=== PATIENT | female | born 1950 | race Caucasian/White ===

== ENCOUNTER 2016-08-25 09:59 | Emergency (ER) | payer OTHER ==
--- NOTE | 2016-08-25 10:12 | CPEKG ---
Heart Rate: 109 RR Interval: 550 P-R Interval: 168 QRSD Interval: 84 QT Interval: 384 QTC Interval: 518 P Elmer: 58 QRS Elmer: 202 T Wave Elmer: 32 EKG Severity - ABNORMAL ECG - EKG Impression: ATRIAL-PACED COMPLEXES EKG Impression: MULTIFORM VENTRICULAR PREMATURE COMPLEXES EKG Impression: MULT INTERPOLATED VENT PREMATURE COMPLEXES EKG Impression: RIGHT AXIS DEVIATION Electronically Signed By: Nii Burroughs 25-Aug-2016 15:10:14
--- NOTE | 2016-08-25 10:20 | EDPHY ---
HPI/HX/ROS/PE/MDM Narrative: CHIEF COMPLAINT: Chest pain. HPI: The patient is a 66-year-old female who complains of chest pain. The patient woke up this morning with normal neck pain. She was resting with a heating pad and suddenly developed left jaw pain that radiates down her left shoulder and arm. This started about 1.5 hours ago. Her blood pressure at that time was 180/100. The pain was initially an 8 or 9/10. She took Aspirin and the pain improved to a 2 or 3. She states she has a dull ache now. The patient saw Dr. Mccullough over 5 years ago for similar jaw pain. She had initial testing that was normal at that time. REVIEW OF SYSTEMS: Aside from elements discussed in the HPI, a comprehensive 10-point review of systems was reviewed and is negative. PMH: COPD. SOCIAL HISTORY: Heavy cigarette smoker. Denies drug abuse. PHYSICAL EXAM: General: Patient is alert, in no acute distress. ENT: Eyes are normal to inspection. ENT inspection normal. Neck: Normal inspection. Full range of motion. Respiratory: No respiratory distress. Breath sounds normal bilaterally. Cardiovascular: Regular rate and rhythm. Strong peripheral pulses. Abdomen: The abdomen is nontender to palpation. There are no peritoneal signs. There are normal bowel sounds. Back: Normal to inspection. No tenderness to palpation. Skin: Normal color. No rash. Warm and dry. Extremities: Normal appearance. Full range of motion. Neuro: Oriented x3. Normal motor function. Normal sensory function. ED Course: EKG was ordered and interpreted by myself. Please see [employer] system for official reading. Normal sinus rhythm, unchanged from prior. Troponin is negative. Lab work is unremarkable. An x-ray of the chest was obtained. I viewed the images myself on the PACS system. No acute disease. See the full radiology report in the imaging section. Plan to discharge patient home. She received cardiology followup. MDM: This patient presents with left-sided chest and jaw pain. Her initial workup in the emergency department including troponin, chest x-ray and EKG is normal. I see no signs of acute coronary syndrome. I offered the patient admission to the hospital for observation and cardiology evaluation but she prefers to go home. We discussed the fact that we have not ruled out a pulmonary embolus, but the patient states she has had a recent CT scan of the chest and is not interested in undergoing another 1. She will follow up with her primary physician within 1 week and I have given her referral to [facility]. We discussed strict return precautions. She understands that the etiology of her pain is not currently known. - Data Points Laboratory Results: Laboratory Results 08/25/16 10:15 08/25/16 10:15 08/25/16 08/25/16 10:15 10:15 WBC 7.24 10^3/uL 10^3/uL (3.80-9.50) RBC 5.50 10^6/uL H 10^6/uL (4.18-5.33) Hgb 17.9 g/dL H g/dL (12.6-16.3) Hct 51.7 % H % (38.0-47.0) MCV 94.0 fL fL (81.5-99.8) MCH 32.5 pg pg (27.9-34.1) MCHC 34.6 g/dL g/dL (32.4-36.7) RDW 13.0 % % (11.5-15.2) Plt Count 201 10^3/uL 10^3/uL (150-400) MPV 9.8 fL fL (8.7-11.7) Neut % (Auto) 53.7 % % (39.3-74.2) Lymph % (Auto) 31.6 % % (15.0-45.0) [place] % (Auto) 8.3 % % (4.5-13.0) Eos % (Auto) 5.4 % % (0.6-7.6) Baso % (Auto) 0.6 % % (0.3-1.7) Nucleat RBC Rel Count 0.0 % % (0.0-0.2) Absolute Neuts (auto) 3.89 10^3/uL 10^3/uL (1.70-6.50) Absolute Lymphs (auto) 2.29 10^3/uL 10^3/uL (1.00-3.00) Absolute Monos (auto) 0.60 10^3/uL 10^3/uL (0.30-0.80) Absolute Eos (auto) 0.39 10^3/uL 10^3/uL (0.03-0.40) Absolute Basos (auto) 0.04 10^3/uL 10^3/uL (0.02-0.10) Absolute Nucleated RBC 0.00 10^3/uL 10^3/uL (0-0.01) Immature Gran % 0.4 % % (0.0-1.1) Immature Gran # 0.03 10^3/uL 10^3/uL (0.00-0.10) Sodium 138 mEq/L mEq/L (134-144) Potassium 4.0 mEq/L mEq/L (3.5-5.2) Chloride 103 mEq/L mEq/L (97-110) Carbon Dioxide 27 mEq/l mEq/l (22-31) Anion Gap 8 mEq/L mEq/L (8-16) BUN 15 mg/dL mg/dL (7-23) Creatinine 0.7 mg/dL mg/dL (0.6-1.0) Estimated GFR > 60 Glucose 99 mg/dL mg/dL (70-100) Calcium 10.0 mg/dL mg/dL (8.5-10.4) Troponin I < 0.012 ng/mL ng/mL (0-0.034) General Time Seen by Provider: 08/25/16 10:09 Initial Vital Signs: Initial Vital Signs Temperature (C) 36.4 C 08/25/16 10:02 Heart Rate 78 08/25/16 10:02 Respiratory Rate 20 08/25/16 10:02 Blood Pressure 156/108 H 08/25/16 10:02 O2 Sat (%) 92 08/25/16 10:02 O2 Delivery Mode Room Air Allergies/Adverse Reactions: codeine Allergy (Verified 08/25/16 10:01) Sulfa (Sulfonamide Antibiotics) Allergy (Verified 08/25/16 10:01) Home Medications: Medication Instructions Recorded Albuterol [Proventil Inhaler HFA 1 - 2 puffs IH Q4PRN PRN #1 mdi 03/11/16 (*)] Meloxicam 08/25/16 Departure - Departure Disposition: Home, Routine, Self-Care Clinical Impression: Chest pain Qualifiers: Chest pain type: unspecified Qualified Code(s): R07.9 - Chest pain, unspecified Condition: Good Instructions: Chest Pain (ED) Additional Instructions: Please followup with [facility] if you continue to have pain. Return to the emergency department with new or worsening symptoms. Referrals: [facility] [Provider Group] - As per Instructions Report Scribed for: Nii Burroughs Report Scribed by: Kimberlyn Porter Date of Report: 08/25/16 Time of Report: 10:20 Physician Review and Approval Statement: Portions of this note were transcribed by a medical appointment scheduler. I personally performed the history, physical exam, and medical decision-making; and confirmed the accuracy of the information in the transcribed note.
[2016-08-25 10:23] LABS: % IMMATURE GRANULYOCYTES 0.4 % (0.0-1.1); ABSOLUTE IMMATURE GRANULOCYTES 0.03 10^3/uL (0.00-0.10); ADD DIFF? NO; ADD MORPH? NO; ADD SCAN? NO; ATYPICAL LYMPHOCYTE FLAG 10 (0-99); FRAGMENT RBC FLAG 0 (0-99); HEMATOCRIT 51.7 % (38.0-47.0); HEMOGLOBIN 17.9 g/dL (12.6-16.3); LEFT SHIFT FLG 10 (0-99); LIPEMIA HEMOLYSIS FLAG 90 (0-99); MEAN CELL HEMOGLOBIN 32.5 pg (27.9-34.1); MEAN CELL HEMOGLOBIN CONCENTR. 34.6 g/dL (32.4-36.7); MEAN PLATELET VOLUME 9.8 fL (8.7-11.7); PLATELET CLUMPS FLAG 0 (0-99); PLATELET COUNT 201 10^3/uL (150-400)
[2016-08-25 10:41] LABS: ANION GAP 8 mEq/L (8-16); CARBON DIOXIDE 27 mEq/l (22-31); CHLORIDE 103 mEq/L (97-110); CREATININE 0.7 mg/dL (0.6-1.0); GLOMERULAR FILTRATION RATE > 60; GLUCOSE 99 mg/dL (70-100); SODIUM 138 mEq/L (134-144)
[2016-08-25 10:52] LABS: TROPONIN I < 0.012 ng/mL (0-0.034)
[2016-08-25 11:28] VITALS: BP 134/96; PULSE 66; RESP 18; TEMP 98.4; O2SAT 93
== END 2016-08-25 11:27 | disposition home or self-care (01) ==
DX: R07.9 Chest pain, unspecified (principal); J44.9 Chronic obstructive pulmonary disease, unspecified; F17.210 Nicotine dependence, cigarettes, uncomplicated

== ENCOUNTER → 2016-12-29 | Outpatient (CLI) | payer OTHER | LOC: CIMAGING 13:10 | PROVIDERS: ATTEND Family Medicine | DX: J43.9 Emphysema, unspecified (principal); E27.9 Disorder of adrenal gland, unspecified; Z87.891 Personal history of nicotine dependence | CPT/HCPCS: 71250-PO ==

== ENCOUNTER → 2017-01-01 | Outpatient (CLI) | payer OTHER | LOC: FIMAGING 13:14 | PROVIDERS: ATTEND Family Medicine | DX: Z12.31 Encounter for screening mammogram for malignant neoplasm of breast (principal) | CPT/HCPCS: G0202 ==

== ENCOUNTER → 2017-08-05 | Outpatient (CLI) | payer OTHER | LOC: FIMAGING 10:17 | PROVIDERS: ATTEND Family Medicine | DX: Z13.820 Encounter for screening for osteoporosis (principal); M85.89 Other specified disorders of bone density and structure, multiple sites ==

== ENCOUNTER → 2018-04-07 | Outpatient (CLI) | payer OTHER | LOC: FIMAGING 10:38 | PROVIDERS: ATTEND Family Medicine | DX: J84.9 Interstitial pulmonary disease, unspecified (principal); I70.0 Atherosclerosis of aorta; M41.84 Other forms of scoliosis, thoracic region; Z87.891 Personal history of nicotine dependence ==

== ENCOUNTER → 2018-09-15 | Outpatient (CLI) | payer OTHER | LOC: CIMAGING 10:46 | PROVIDERS: ATTEND Family Medicine | DX: J40 Bronchitis, not specified as acute or chronic (principal) | CPT/HCPCS: 71046-PO ==

== ENCOUNTER 2018-09-18 10:30 | Observation (INO) | payer OTHER ==
[2018-09-18] MEDS ORDERED: IPRATROPIUM/ALBUTEROL 3 ML DEYVIAL IH ONE (11:25)
[2018-09-18] MEDS ORDERED: methylPREDNISolone SOD SUCC 125 MG/2 ML VIAL IVP ONE (11:25)
--- NOTE | 2018-09-18 11:29 | EDPHY ---
H & P Time Seen by Provider: 09/18/18 10:42 HPI/ROS: CHIEF COMPLAINT: Shortness of breath, cough HISTORY OF PRESENT ILLNESS: Patient is a 68-year-old female with a history of COPD who presents emergency department with ongoing shortness of breath and cough. The patient states she has been sick for approximately 1 month. She was seen by primary care physician Dr. Kerr. She was treated with a Z-Sal as well as a course of prednisone. This did not improve her symptoms. Last Tuesday she had an outpatient chest x-ray. This revealed possible pulmonary edema. The patient was placed on Lasix by her primary care physician. Patient continues to feel short of breath and cough. She feels fatigued and tired. She has mild right-sided chest wall pain from coughing. She denies leg pain or swelling. REVIEW OF SYSTEMS: 10 systems were reveiwed and are negative with the exception of the elements mentioned in the history of present illness. Past Medical/Surgical History: Includes COPD, seasonal allergies Social history: Patient smokes Smoking Status: Former smoker Physical Exam: Vitals noted. O2 saturation 83% on room air 91% on 3 L. GENERAL: Well-appearing, in no acute distress, alert. Intermittent fits of coughing. HEENT: Eyes normal to inspection, normal pharynx, no signs of dehydration. NECK: Normal, supple. RESPIRATORY: Coarse breath sounds and wheezing bilaterally, no rhonchi. CVS: Regular rate and rhythm, no rubs, murmurs, or gallops. ABDOMEN: Soft, nontender, nondistended, no organomegaly. BACK: Normal to inspection, no CVA tenderness. SKIN: Normal color, no rash, warm, dry. No pallor. EXTREMITIES: No pedal edema, no calf tenderness, no Homans sign or cords, no joint swelling. NEURO/PSYCH: Alert and oriented, normal mood and affect, normal motor sensory exam. No obvious cranial nerve deficit. Constitutional: Initial Vital Signs Temperature (C) 36.9 C 09/18/18 10:33 Heart Rate 98 09/18/18 10:33 Respiratory Rate 18 09/18/18 10:33 Blood Pressure 129/72 H 09/18/18 10:33 O2 Sat (%) 83 L 09/18/18 10:33 O2 Delivery Mode Nasal Cannula O2 (L/minute) 4 Allergies/Adverse Reactions: Sulfa (Sulfonamide Antibiotics) Allergy (Unknown, Verified 09/18/18 13:29) Unknown codeine Allergy (Verified 09/18/18 13:29) Vomiting Home Medications: Medication Instructions Recorded Albuterol [Proventil Inhaler HFA 1 - 2 puffs IH Q4PRN PRN #1 mdi 03/11/16 (*)] Benzonatate [Tessalon Pearles (RX)] 100 - 200 mg PO TID PRN 09/18/18 Beta-Carotene(A) W-C & E/Min 1 tab PO HS 09/18/18 [Ocuvite] Bupropion HCl [Wellbutrin Xl] 300 mg PO DAILY 09/18/18 Diazepam [Valium 10 MG (*)] 5 - 10 mg PO DAILY PRN 09/18/18 Docusate Sodium [Colace 100 MG (*)] 200 mg PO HS 09/18/18 Furosemide [Lasix 20 MG (*)] 20 mg PO DAILY 09/18/18 Herbals/Supplements -Info Only 1 ea PO DAILY 09/18/18 Ipratropium/Albuterol [Duoneb (*)] 3 ml IH QID PRN 09/18/18 Losartan/Hctz 50/12.5 [Hyzaar 0.5 tab PO DAILY 09/18/18 50/12.5MG (*)] Tears/Dextran 70/Hypromellose 1 drop EACHEYE Q2 PRN 09/18/18 [Natural Balance Tears (*)] Medical Decision Making - Diagnostics Imaging Results: Imaging Impressions Chest X-Ray 09/18/18 11:25 Impression: Stable mild bronchitis. Stable chronic findings as above. ED Course/Re-evaluation: In the emergency department discussed possible etiologies with the patient. I answered all her questions. IV was placed. Laboratory studies, EKG and chest x -ray were ordered. Due the patient's significant wheezing and low O2 saturation the patient was given a DuoNeb, steroid. EKG shows normal sinus rhythm, normal rate, normal axis, normal intervals. There are no ST or T-wave abnormalities. EKG is normal as interpreted by me. Chest x-ray: No infiltrate or or fluid overload noted. The patient is stable bronchitis. CBC is unremarkable. Chemistry panel is notable for low sodium 132. Patient's BNP is 355. Troponin is negative. I discussed case with the hospitalist service. They will admit for further treatment evaluation of the patient's hypoxemia and COPD exacerbation. Differential Diagnosis: My differential includes but is not limited to COPD exacerbation, CHF, pneumonia , bronchitis, pulmonary embolus, ACS, acute NH, empyema - Data Points Laboratory Results: Laboratory Results 09/18/18 11:45 09/18/18 11:45 09/18/18 09/18/18 09/18/18 12:01 11:45 11:45 WBC 6.30 10^3/uL 10^3/uL (3.80-9.50) RBC 5.19 10^6/uL 10^6/uL (4.18-5.33) Hgb 16.9 g/dL H g/dL (12.6-16.3) Hct 49.3 % H % (38.0-47.0) MCV 95.0 fL fL (81.5-99.8) MCH 32.6 pg pg (27.9-34.1) MCHC 34.3 g/dL g/dL (32.4-36.7) RDW 12.2 % % (11.5-15.2) Plt Count 233 10^3/uL 10^3/uL (150-400) MPV 9.5 fL fL (8.7-11.7) Neut % (Auto) 50.0 % % (39.3-74.2) Lymph % (Auto) 27.3 % % (15.0-45.0) [place] % (Auto) 9.7 % % (4.5-13.0) Eos % (Auto) 11.9 % H % (0.6-7.6) Baso % (Auto) 0.8 % % (0.3-1.7) Nucleat RBC Rel Count 0.0 % % (0.0-0.2) Absolute Neuts (auto) 3.15 10^3/uL 10^3/uL (1.70-6.50) Absolute Lymphs (auto) 1.72 10^3/uL 10^3/uL (1.00-3.00) Absolute Monos (auto) 0.61 10^3/uL 10^3/uL (0.30-0.80) Absolute Eos (auto) 0.75 10^3/uL H 10^3/uL (0.03-0.40) Absolute Basos (auto) 0.05 10^3/uL 10^3/uL (0.02-0.10) Absolute Nucleated RBC 0.00 10^3/uL 10^3/uL (0-0.01) Immature Gran % 0.3 % % (0.0-1.1) Immature Gran # 0.02 10^3/uL 10^3/uL (0.00-0.10) D-Dimer Sodium 132 mEq/L L mEq/L (135-145) Potassium 3.7 mEq/L mEq/L (3.5-5.2) Chloride 95 mEq/L L mEq/L (97-110) Carbon Dioxide 27 mEq/l mEq/l (22-31) Anion Gap 10 mEq/L mEq/L (6-14) BUN 10 mg/dL mg/dL (7-23) Creatinine 0.8 mg/dL mg/dL (0.6-1.0) Estimated GFR > 60 Glucose 101 mg/dL H mg/dL (70-100) Calcium 9.7 mg/dL mg/dL (8.5-10.4) Total Bilirubin 0.7 mg/dL mg/dL (0.1-1.4) Conjugated Bilirubin 0.0 mg/dL mg/dL (0.0-0.5) Unconjugated Bilirubin 0.7 mg/dL mg/dL (0.0-1.1) AST 26 IU/L IU/L (14-46) ALT 33 IU/L IU/L (9-52) Alkaline Phosphatase 78 IU/L IU/L (38-126) POC Troponin I 0.02 ng/mL ng/mL (0.00-0.08) NT-Pro-B Natriuret Pep 355 pg/mL H pg/mL (0-125) Total Protein 6.7 g/dL g/dL (6.3-8.2) Albumin 3.8 g/dL g/dL (3.5-5.0) 09/18/18 11:42 WBC RBC Hgb Hct MCV MCH MCHC RDW Plt Count MPV Neut % (Auto) Lymph % (Auto) [place] % (Auto) Eos % (Auto) Baso % (Auto) Nucleat RBC Rel Count Absolute Neuts (auto) Absolute Lymphs (auto) Absolute Monos (auto) Absolute Eos (auto) Absolute Basos (auto) Absolute Nucleated RBC Immature Gran % Immature Gran # D-Dimer 0.33 ug/mLFEU ug/mLFEU (0.00-0.50) Sodium Potassium Chloride Carbon Dioxide Anion Gap BUN Creatinine Estimated GFR Glucose Calcium Total Bilirubin Conjugated Bilirubin Unconjugated Bilirubin AST ALT Alkaline Phosphatase POC Troponin I NT-Pro-B Natriuret Pep Total Protein Albumin Medications Given: Discontinued Medications Albuterol/Ipratropium (Duoneb) 3 ml IH EDNOW ONE Stop: 09/18/18 11:26 Last Admin: 09/18/18 12:06 Dose: 3 ml Methylprednisolone Sodium Succinate (Solu-Medrol) 125 mg IVP EDNOW ONE Stop: 09/18/18 11:26 Last Admin: 09/18/18 12:08 Dose: 125 mg Point of Care Test Results: Chemistry 09/18/18 12:01 POC Troponin I 0.02 ng/mL ng/mL (0.00-0.08) Departure - Departure Disposition: [facility] Inpatient Acute Clinical Impression: Hypoxia, COPD exacerbation Condition: Fair
[2018-09-18 12:05] LABS: PLATELET COUNT 233 10^3/uL (150-400)
[2018-09-18] MEDS ORDERED: ACETAMINOPHEN 325 MG TAB PO PRN (13:05)
[2018-09-18] MEDS ORDERED: ALBUTEROL 3 ML DEYVIAL IH PRN (13:05)
[2018-09-18] MEDS ORDERED: ONDANSETRON DISINTEGRATING 4 MG TAB PO PRN (13:05)
[2018-09-18] MEDS ORDERED: ONDANSETRON 4 MG/2 ML VIAL IVP PRN (13:05)
[2018-09-18] MEDS ORDERED: BENZONATATE 100 MG CAP PO PRN (14:30)
[2018-09-18] MEDS ORDERED: TEARS/DEXTRAN 70/HYPROMELLOSE 15 ML OPHT.BTL EACHEYE PRN (14:30)
--- NOTE | 2018-09-18 15:02 | CPEKG ---
Test Reason : OPEN Blood Pressure : / mmHG Vent. Rate : 082 BPM Atrial Rate : 082 BPM P-R Int : 160 ms QRS Dur : 092 ms QT Int : 428 ms P-R-T Axes : 076 228 077 degrees QTc Int : 500 ms Sinus rhythm Consider right ventricular hypertrophy Borderline prolonged QT interval Confirmed by Giovana Sinha ([id number]) on 09/18/2018 3:02:03 PM Referred By: Giovana Sinha Confirmed By:Giovana Sinha
--- NOTE | 2018-09-18 15:31 | ASMTCMCOM ---
CM Note CM Note Notes: Patient admitted via ED for COPD exacerbation, 68 year old female who reports 1 month of feeling ill after treatment with a zpack and prednisone. Current increase in oxygen requirements, CM to follow for needs. Plan: TBD Date Signed: 09/18/2018 03:30 PM Electronically Signed By:Brina Latif RN
[2018-09-18] MEDS: guaiFENesin 600 MG TAB.ER PO SCH ×2 (15:33→21:00)
[2018-09-18] MEDS: BUDESONIDE/FORMOTEROL 160/4.5 60 PUFFS/MDI IH SCH ×2 (15:45→21:39)
[2018-09-18] MEDS: IPRATROPIUM/ALBUTEROL 3 ML DEYVIAL IH SCH ×2 (15:45→21:39)
--- NOTE | 2018-09-18 15:58 | PDGENHP ---
History and Physical - Chief Complaint SOB, Cough - History of Present Illness Shana Navas is a 68 yo F with a PMHx of COPD, tobacco use, HTN who presents to [facility] for SOB and cough. Patient reports that symptoms have been ongoing for approx. 1 month. Symptoms started with a URI while she was visiting [place] about 1 month ago with productive cough and SOB. She followed with her PCP for this within the past 2 weeks for which she was initially prescribed a course Prednisone for 9 days which she completed a week ago. She did not feel improved which she reports she has in the past with this medication so she returned to her PCP who prescribed her a Z-Pack. Again, she reports no improvement in symptoms with this medication and returned to PCP who obtained a CXR which showed mild pulmonary edema so she was prescribed 20 mg Lasix PO qd. She denies again any improvement in symptoms with this medication. She does use albuterol PRN both inhaler and nebs at home which significantly improve her symptoms for 30 mins then return. She denies any chest pain, edema, d/c, f/c, n/v, palpitations, hemoptysis. She does report some wheezing for which she uses albuterol. She complains of [place] with being unable to walk up her friends 15 stairs without having to stop and catch her breath. History Information - Allergies/Home Medication List Allergies/Adverse Reactions: Sulfa (Sulfonamide Antibiotics) Allergy (Unknown, Verified 09/18/18 13:29) Unknown codeine Allergy (Verified 09/18/18 13:29) Vomiting Home Medications: Benzonatate [Tessalon Pearles (RX)] 100 - 200 mg PO TID PRN 09/18/18 [Last Taken 09/18/18] Beta-Carotene(A) W-C & E/Min [Ocuvite] 1 tab PO HS 09/18/18 [Last Taken 09/17/18 ] Bupropion HCl [Wellbutrin Xl] 300 mg PO DAILY 09/18/18 [Last Taken 09/18/18] Diazepam [Valium 10 MG (*)] 5 - 10 mg PO DAILY PRN 09/18/18 [Last Taken Unknown] Docusate Sodium [Colace 100 MG (*)] 200 mg PO HS 09/18/18 [Last Taken 09/17/18] Furosemide [Lasix 20 MG (*)] 20 mg PO DAILY 09/18/18 [Last Taken 09/18/18] Herbals/Supplements -Info Only 1 ea PO DAILY 09/18/18 [Last Taken Unknown] Ipratropium/Albuterol [Duoneb (*)] 3 ml IH QID PRN 09/18/18 [Last Taken 09/18/18 ] Losartan/Hctz 50/12.5 [Hyzaar 50/12.5MG (*)] 0.5 tab PO DAILY 09/18/18 [Last Taken 09/18/18] Tears/Dextran 70/Hypromellose [Natural Balance Tears (*)] 1 drop EACHEYE Q2 PRN 09/18/18 [Last Taken Unknown] I have personally reviewed and updated: family history, medical history, social history, surgical history - Past Medical History COPD, hypertension - Surgical History Reports: no pertinent surgical hx - Family History Positive for: non-pertinent - Social History Smoking Status: Former smoker Review of Systems Review of Systems: ROS: 10pt was reviewed & negative except for what was stated in HPI & below Physical Exam Physical Exam: Temp Pulse Resp BP Pulse Ox 36.6 C 102 H 18 113/76 92 09/18/18 15:13 09/18/18 15:13 09/18/18 15:13 09/18/18 15:13 09/18/18 15:13 O2 (L/minute) 3 Constitutional: no apparent distress Eyes: PERRL Ears, Nose, Mouth, Throat: moist mucous membranes Cardiovascular: regular rate and rhythym Respiratory: reduced air movement, expiratory wheeze (mild at bases) Gastrointestinal: soft, non-tender abdomen Genitourinary: No alfaro in urethra Skin: warm Musculoskeletal: full muscle strength Neurologic: AAOx3 Psychiatric: interacting appropriately Lab Data & Imaging Review 09/18/18 11:45 09/18/18 11:45 WBC 6.30 10^3/uL (3.80-9.50) 09/18/18 11:45 RBC 5.19 10^6/uL (4.18-5.33) 09/18/18 11:45 Hgb 16.9 g/dL (12.6-16.3) H 09/18/18 11:45 Hct 49.3 % (38.0-47.0) H 09/18/18 11:45 MCV 95.0 fL (81.5-99.8) 09/18/18 11:45 MCH 32.6 pg (27.9-34.1) 09/18/18 11:45 MCHC 34.3 g/dL (32.4-36.7) 09/18/18 11:45 RDW 12.2 % (11.5-15.2) 09/18/18 11:45 Plt Count 233 10^3/uL (150-400) 09/18/18 11:45 MPV 9.5 fL (8.7-11.7) 09/18/18 11:45 Neut % (Auto) 50.0 % (39.3-74.2) 09/18/18 11:45 Lymph % (Auto) 27.3 % (15.0-45.0) 09/18/18 11:45 [place] % (Auto) 9.7 % (4.5-13.0) 09/18/18 11:45 Eos % (Auto) 11.9 % (0.6-7.6) H 09/18/18 11:45 Baso % (Auto) 0.8 % (0.3-1.7) 09/18/18 11:45 Nucleat RBC Rel Count 0.0 % (0.0-0.2) 09/18/18 11:45 Absolute Neuts (auto) 3.15 10^3/uL (1.70-6.50) 09/18/18 11:45 Absolute Lymphs (auto) 1.72 10^3/uL (1.00-3.00) 09/18/18 11:45 Absolute Monos (auto) 0.61 10^3/uL (0.30-0.80) 09/18/18 11:45 Absolute Eos (auto) 0.75 10^3/uL (0.03-0.40) H 09/18/18 11:45 Absolute Basos (auto) 0.05 10^3/uL (0.02-0.10) 09/18/18 11:45 Absolute Nucleated RBC 0.00 10^3/uL (0-0.01) 09/18/18 11:45 Immature Gran % 0.3 % (0.0-1.1) 09/18/18 11:45 Immature Gran # 0.02 10^3/uL (0.00-0.10) 09/18/18 11:45 D-Dimer 0.33 ug/mLFEU (0.00-0.50) 09/18/18 11:42 Sodium 132 mEq/L (135-145) L 09/18/18 11:45 Potassium 3.7 mEq/L (3.5-5.2) 09/18/18 11:45 Chloride 95 mEq/L (97-110) L 09/18/18 11:45 Carbon Dioxide 27 mEq/l (22-31) 09/18/18 11:45 Anion Gap 10 mEq/L (6-14) 09/18/18 11:45 BUN 10 mg/dL (7-23) 09/18/18 11:45 Creatinine 0.8 mg/dL (0.6-1.0) 09/18/18 11:45 Estimated GFR > 60 09/18/18 11:45 Glucose 101 mg/dL (70-100) H 09/18/18 11:45 Calcium 9.7 mg/dL (8.5-10.4) 09/18/18 11:45 Total Bilirubin 0.7 mg/dL (0.1-1.4) 09/18/18 11:45 Conjugated Bilirubin 0.0 mg/dL (0.0-0.5) 09/18/18 11:45 Unconjugated Bilirubin 0.7 mg/dL (0.0-1.1) 09/18/18 11:45 AST 26 IU/L (14-46) 09/18/18 11:45 ALT 33 IU/L (9-52) 09/18/18 11:45 Alkaline Phosphatase 78 IU/L (38-126) 09/18/18 11:45 POC Troponin I 0.02 ng/mL (0.00-0.08) 09/18/18 12:01 NT-Pro-B Natriuret Pep 355 pg/mL (0-125) H 09/18/18 11:45 Total Protein 6.7 g/dL (6.3-8.2) 09/18/18 11:45 Albumin 3.8 g/dL (3.5-5.0) 09/18/18 11:45 Assessment & Plan Assessment: COPD exacerbation (Acute) - Presenting with SOB and productive cough of clear/whitish sputum - 02 83% on RA, currently on 4L with 02 in - CXR on admission showing stable mild bronchitis with emphysematous changes, recent CXR from 09/15 showed mild interstitial pulmonary edema - Recently on course of steroids (9 days of Prednisone), abx (Z-Pack), Lasix 20 mg qd without improvement in symptoms - D-Dimer negative on admission, will hold off on CT Chest for now - This is likely an exacerbation of chronic lung disease which appears to be undertreated with no long acting inhalers on board - S/p 125 mg IV Solumedrol in ED, will continue Prednisone 40 mg qd for total 5 day course - Will hold off on abx for now as CXR shows no e/o PNA, no leukocytosis, no complaints of f/c - Ordered scheduled Duonebs QID, Albuterol PRN - Will start Spiriva and Symbicort given hx of COPD - If no improvement in symptoms will consider CT chest, pulmonology consult tomorrow - Respiratory PCR pending Hypoxia (Acute) - 83% on RA on admission, reports hx of needing 02 but was unable to obtain due to insurance issues - Management of likely COPD exacerbation as above - CXR on 09/15 showing mild interstitial edema, BNP mildly elevated on admission , no hx of CHF, will check TTE to further evaluate - Wean 02 as tolerated, given patient's hx will likely require home 02 upon discharge Hyponatremia - Na 132 on admission - In setting of recent decreased PO intake - Repeat Na in the AM HTN - BP WNL on admission - Continue home BP medications FEN: IVF PRN, Regular DVT PPx: SubQ Lovenox Code: FULL Dispo: Admit to Observation
[2018-09-18] MEDS ORDERED: DOCUSATE SODIUM 100 MG CAP PO SCH (21:00)
[2018-09-18] MEDS ORDERED: [UNRECOGNIZED DRUG - OTHER] PO SCH (21:00)
[2018-09-19] MEDS: IPRATROPIUM/ALBUTEROL 3 ML DEYVIAL IH SCH ×2 (05:25→10:47)
[2018-09-19 07:56] VITALS: BP 105/77
[2018-09-19] MEDS ORDERED: TIOTROPIUM INHALER 18 MCG/DOSE 5 DOSE/MDI IH SCH (09:00)
[2018-09-19] MEDS ORDERED: buPROPion XL 150 MG TAB PO SCH (09:00)
[2018-09-19] MEDS ORDERED: LOSARTAN/HCTZ 50/12.5 1 TAB PO SCH (09:00)
[2018-09-19] MEDS ORDERED: predniSONE 20 MG TAB PO SCH (09:00)
[2018-09-19] MEDS ORDERED: ENOXAPARIN 40 MG/0.4 ML SYR SC SCH (09:00)
[2018-09-19] MEDS: guaiFENesin 600 MG TAB.ER PO SCH (09:31)
--- NOTE | 2018-09-19 10:20 | ECHO ---
[email or web address] [address] [address] Main: [phone] Echocardiography Examination Transthoracic Name: WENDY CAMPOS MR#: [id number] Study Date: 09/19/2018 Study Time: 08:43 AM Date of : 1950 Age: 68 year(s) Height: 160 cm (63 in.) Weight: 58.06 kg (128 lb.) BSA: 1.6 m2 Gender: Female Examination: Echo Contrast: Image Quality: Adequate Rhythm: Heart Rate: BP: 105 mmHg/77 mmHg Indication: Pleural effusions on CXR Procedure Staff Referring Physician: Lacquer Sizer: Enedelia Bui [facility] Reading Physician: Cortes Zamudio MD Requesting Provider: Ordering Physician: Joseph Velasquez Indication: Pleural effusions on CXR Measurements Chambers AV/MV Label Value Normal Value Label Value Normal Value LVOTd 2 cm (1.8cm - 2cm) AV PGmax 8 mmHg LVOT VTI 21.6 cm (18cm - 22cm) AV PGmean 4 mmHg LVDd, 2D 4 cm (3.9cm - 5.3cm) AV Vmax 1.37 m/s LVDs, 2D 2.8 cm (2.1cm - 4cm) FLOR (VTI) 2.3 cm2 IVSd, 2D 1.1 cm (0.6cm - 1.1cm) MV E Vmax 0.7 m/s LVPWd, 2D 1.1 cm MV A Vmax 0.88 m/s LVEF, BP 61 % (55% - 70%) MV E/A 0.8 LVEF, 2D 56 % (54% - 74%) MV E/E' lateral 9.3 LVOT PGmean 3 mmHg MV E/E' septal 9.7 (0.45 - 1.25) LVOT Vmean 0.89 m/s MV DT 282 ms RVDd, 2D 2.6 cm (1.9cm - 3.8cm) MV E' septal 0.07 m/s LA Volume, BP 39 ml (22ml - 52ml) MV PHT 0.09 s LADs, 2D 3.2 cm (2.7cm - 3.8cm) MVA PHT 2.6 cm2 LAESV index, BP 24.4 ml/m2 MV E' lateral 0.08 m/s RA Area 12.5 cm2 MV E/E' mean 9.33 Additional Vessels MV PHT 85 ms Label Value Normal Value MV E' mean 0.08 m/s AoAsc 2.9 cm TV/PV AoRoot, 2D 3.5 cm (1.4cm - 2.6cm) Label Value Normal Value Patient: WENDY CAMPOS Study Date: 09/19/2018 Page 1 of 3 08:43 AM IVC 1.6 cm (1.2cm - 2.3cm) RA Pressure 5 mmHg RVSP 23 mmHg TR Pmax 18 mmHg TR Vmax 2.14 m/s PV PGmax 3 mmHg PV Vmax, Caliper 0.84 m/s (0.6m/s - 0.9m/s) Conclusions Normal left ventricular size and function. LVEF estimated at 60-65 % and calculated at 60 1% by Pedersen's. Normal left ventricular free wall thickness and wall motion. Normal diastolic function. Normal LA, RA and RV dimensions. Normal appearing valvular structures. Trivial mitral regurgitation. Trivial tricuspid regurgitation with a normal estimated RVSP. Pericardial fat pad with trivial pericardial effusion. Findings Left Ventricle: Left ventricle is normal in size. Normal global systolic left ventricular function. The ejection fraction, measured by Simpsons method, is 61 %. EF range is estimated at 60 % - 65 %. Left ventricle wall thickness is normal. There are no regional wall motion abnormalities. Left ventricular diastolic function parameters are normal. No LV hypertrophy. Right Ventricle: Normal size right ventricle. Right ventricular systolic function is normal. Left Atrium: The left atrium is normal in size. Right Atrium: The right atrium is normal in size. Mitral Valve: Mitral valve appears structurally normal. Trivial mitral regurgitation. No mitral valve stenosis. Aortic Valve: Aortic leaflets are structurally normal. No significant aortic valve regurgitation. There is no aortic stenosis. Tricuspid Valve: Tricuspid valve leaflets are structurally normal. Trivial tricuspid regurgitation. No tricuspid valve stenosis. Right Ventricular systolic pressure is measured at 23 mmHg. Pulmonary artery pressure normal. Pulmonic Valve: Pulmonic valve not well visualized. Aorta: The aortic root size in 2D measures 3.5 cm. The ascending aorta measures 2.9 cm. Aorta Measurements AoRoot, 2D is 3.5 cm. IVC: The inferior vena cava is normal in size. Pericardium: A pericardial fat pad is present. Trivial pericardial effusion. Exam Details Procedure Ordered: Echo Procedure Status: Routine study Image Quality: Adequate Facility Location: Cardiac Echo 1 (No Signature Object) Patient: WENDY CAMPOS Study Date: 09/19/2018 Page 2 of 3 08:43 AM Patient: WENDY CAMPOS Study Date: 09/19/2018 Page 3 of 3 08:43 AM [id number]
[2018-09-19] MEDS: BUDESONIDE/FORMOTEROL 160/4.5 60 PUFFS/MDI IH SCH (10:47)
--- NOTE | 2018-09-19 10:52 | PDHOMEO2F ---
Home Oxygen Face to Face Home Orders: I certify that a physician or a nurse practitioner or physician's prosthetics assistant has had a [id number] encounter with this patient on the date of this order due to the diagnosis listed, which relates to the primary reason the patient requires home oxygen. Alternative treatments have been tried, or considered, and deemed ineffective. It is anticipated that supplemental oxygen will result in improvement with treatment. Home oxygen qualifying diagnosis: COPD SpO2 on room air (%): 80 Frequency of home oxygen needed: continuous Home oxygen liters per minute: 2 Home oxygen delivery device: nasal cannula Concentrator: Yes E-tanks for mobility and back up: Yes If ordering portable O2, is the patient mobile in the home?: Yes I certify that, based on these findings, the home oxygen is medically necessary for this patient for the following length of time. Length of time home oxygen needed: 99 years
--- NOTE | 2018-09-19 12:40 | PDDCSUM ---
Discharge Summary Discharge Summary: Date of Admission: 09/18/2018 Date of Discharge: 09/19/2018 Consults: N/A Procedures: CXR, TTE Followup: PCP, Pulmonology (referral for Dr. Charles Nunez placed) Hospital Course Problem List: COPD exacerbation (Acute) - Presenting with SOB and productive cough of clear/whitish sputum - 02 83% on RA, currently on 2L with 02 in 's, ordered home 02 upon discharge - CXR on admission showing stable mild bronchitis with emphysematous changes, recent CXR from 09/15 showed mild interstitial pulmonary edema - Recently on course of steroids (9 days of Prednisone), abx (Z-Pack), Lasix 20 mg qd without improvement in symptoms - Respiratory PCR negative on admission - D-Dimer negative on admission, held off on CT Chest - This is likely an exacerbation of chronic lung disease which appears to be undertreated with no long acting inhalers on board - S/p 125 mg IV Solumedrol in ED, will continue Prednisone 40 mg qd for total 5 day course - Will hold off on abx for now as CXR shows no e/o PNA, no leukocytosis, no complaints of f/c - Duonebs QID, Albuterol PRN - Planned to start Symbicort however patient concerned about side effects of inhaled steroids, would like to discuss with pulmonology prior to starting, agreed to take Spiriva upon discharge Hypoxia (Acute) - 83% on RA on admission, reports hx of needing 02 but was unable to obtain due to insurance issues - Management of likely COPD exacerbation as above - CXR on 09/15 showing mild interstitial edema, BNP mildly elevated on admission , no hx of CHF, TTE performed with normal EF, no significant findings - Wean 02 as tolerated, given patient's hx will require home 02 upon discharge which has been ordered Hyponatremia - Na 132 on admission - In setting of recent decreased PO intake HTN - BP WNL on admission, low this AM - Holding home BP medications, instructed to take BP at home and f/u with PCP for further evaluation and management
--- NOTE | 2018-09-19 12:46 | ASMTLACE ---
LACE Length of stay for Answers: Less than 1 day current admission Acuity / Level of Answers: No Care: Did the patient have an inpatient admission? Comorbidities - select Answers: Chronic pulmonary disease all that apply Score: 2 Date Signed: 09/19/2018 12:45 PM Electronically Signed By:Rita Bravo
--- NOTE | 2018-09-19 12:47 | ASMTLACE ---
LACE Length of stay for Answers: Less than 1 day current admission Acuity / Level of Answers: No Care: Did the patient have an inpatient admission? Comorbidities - select Answers: Chronic pulmonary disease all that apply # of Emergency department Answers: 1-2 visits in the last 6 months Score: 3 Date Signed: 09/19/2018 12:46 PM Electronically Signed By:Rita Bravo
[2018-09-19] MEDS ORDERED: PRESERVISION AREDS2 FORMULA EYE VIT 1 EACH PO SCH (21:00)
== END 2018-09-19 13:25 | disposition home or self-care (01) ==
LOC: F2W 14:50
PROVIDERS: ADMIT Internal Medicine; ATTEND Internal Medicine
DX: J44.1 Chronic obstructive pulmonary disease with (acute) exacerbation (principal); E87.1 Hypo-osmolality and hyponatremia; I10 Essential (primary) hypertension
CPT/HCPCS: 71046; 93005; 93306; 96374; 97116; 97161; 97165; 99285; G0378; J2930; J7512; 84484-ER; J1650

== ENCOUNTER → 2018-10-10 | Outpatient (CLI) | payer OTHER | LOC: FIMAGING 10:40 ==